=== PATIENT | female | born 1965 | race Caucasian/White ===

== ENCOUNTER → 2016-07-25 | Outpatient (CLI) | payer OTHER ==
[~2016-07-25] MED LIST: ALLE10TA10 PO; DICL75TA PO; HYDR25TA5 PO; IBUP-232 PO; IBUP800T23 PO; INDO50CA PO; LANS15CA PO; LEVO.125 PO; MAGICADU2 SWISH-SWAL; MECL-62 PO; NORC5TAB PO; PENI500T PO; PRIL20CA9 PO; QUET300XR PO; TRIL300T PO; ZOLO50TA PO
--- NOTE | 2016-07-25 14:10 | RADRPT ---
EXAM DATE/TIME: 07/25/2016 13:24 [facility] COMPARISON: none INDICATIONS : Pain in right wrist status post fall a few months ago. Evaluate for Kienbock's. RADIATION DOSE: 4.14 CTDIvol (mGy) MEDICAL HISTORY : Hypertension. Chronic obstructive pulmonary disease. SURGICAL HISTORY : Tubal ligation. ENCOUNTER: Initial ACUITY: 4 - 6 months PAIN SCALE: 4/10 LOCATION: Right wrist TECHNIQUE: Volumetric scanning of the wrist was performed. Using automated exposure control and adjustment of t he mA and/or kV according to patient size, radiation dose was kept as low as reasonably achievable to obtain optimal diagnostic quality images. FINDINGS: Problem specific findings: The examination demonstrates increased bony sclerosis of the lunate with fragmentation, partial colla pse and fracture through the central aspect of the lunate. There is early carpal collapse with machine stoppage frequency checker ior displacement of the capitate. The remainder of the osseous structures of the carpus are intact. T he distal radius and ulna are intact. CT source data: There is no retained foreign body identified. CONCLUSION: 1. Sclerotic bony changes within the lunate with fragmentation, central fracture and early carpal col lapse with slight posterior displacement of the capitate. 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 Gordon Brown MD on July 25, 2016 at 13:54 Board Certified Radiologist. This report was verified electronically.
== END ==
LOC: HRAD 12:50
PROVIDERS: ATTEND Specialist
DX: M93.1 Kienbock's disease of adults (principal)
CPT/HCPCS: 73200

== ENCOUNTER 2016-08-02 10:41 | Emergency (ER) | payer OTHER ==
[~2016-08-02] VITALS: Ht 175.3 cm; Wt 90.7 kg
[~2016-08-02 10:41] MED LIST changes: -DICL75TA PO; -HYDR25TA5 PO; -IBUP-232 PO; -LANS15CA PO; -LEVO.125 PO; -MAGICADU2 SWISH-SWAL; -NORC5TAB PO; -PENI500T PO; -PRIL20CA9 PO
[2016-08-02 10:48] VITALS: BP 147/102; PULSE 100; RESP 17; TEMP 97.6; O2SAT 99
[2016-08-02] MEDS ORDERED: PRIL20CA9 PO (11:04)
[2016-08-02] MEDS ORDERED: LEVO.125 PO (11:04)
--- NOTE | 2016-08-02 11:06 | PD ---
HPI Chief Complaint: Oral / Dental Pain or Problem Time Seen by Provider: 11:05 Travel History International Travel<30 days: No Contact w/Intl Traveler<30days: No Traveled to known affect area: No History of Present Illness HPI 51-year-old female presents to the ED for evaluation of 1 week history of 10/10 lower frontal dental pain. Patient states that she has a "bad tooth" in the area that flares up occasionally. She denies fevers or chills, radiation of the pain, difficulty swallowing, airway difficulties. She does not have a dentist. She's been treating with 800 mg ibuprofen with no improvement of symptoms. PFSH Past Medical History Anemia: Yes Arthritis: Yes Bipolar Disorder: Yes COPD: Yes Diabetes: No Diminished Hearing: No GERD: Yes Genitourinary: Yes Hepatitis: Yes (B&C) Reproductive: Yes (Uterine fibroids, fibrocystic breast) Respiratory: Yes (COPD) Immunizations Current: Yes Pancreatitis: Yes Thyroid Disease: Yes Tetanus Vaccination: Unknown ?: Not LMP: [employer] Menopausal: Yes : 4 Para: 4 Tubal Ligation: Yes Past Surgical History Section: Yes (X's 4) Other Surgery: Yes (Breast aug) Social History Alcohol Use: No (3 "Clinton's Hard" every night) Tobacco Use: Yes (04/23 PPD AND E-CIG) Substance Use: Yes (HX CRACK COCAINE; DENIES USE SINCE 2009) Allergies-Medications (Allergen,Severity, Reaction): Coded Allergies: Thorazine (Verified Allergy, Unknown, Patient denies, 08/02/16) PATIENT DENIES Reported Meds & Prescriptions Reported Meds & Active Scripts Active Magic Mouthwash Adult Liq (Multi-Ingredient Mouthwash/Gargle) 120 Ml Susp 10 Ml SWISH-SWAL ACHS Each 5mL contains: Nystatin 200,000units, Diphenhydramine 4.25mg, Viscous Lidocaine 10mg, Craft syrup 0.8 mL Penicillin V Potassium 500 Mg Tab 500 Mg PO Q8H 10 Days Ibuprofen 800 Mg Tab 800 Mg PO Q8H PRN Reported Prilosec (Omeprazole) 20 Mg Cap 20 Mg PO DAILY Synthroid (Levothyroxine Sodium) 125 Mcg Tab 125 Mcg PO DAILY Meclizine (Meclizine HCl) 25 Mg Tab 25 Mg PO DIRECTED PRN Trileptal (Oxcarbazepine) 300 Mg Tab 300 Mg PO HS Seroquel XR (Quetiapine Fumarate) 300 Mg Tab 250 Mg PO DAILY Zoloft (Sertraline HCl) 50 Mg Tab 50 Mg PO DAILY Review of Systems Except as stated in HPI: all other systems reviewed are Neg Physical Exam Narrative GENERAL: Well-nourished, well-developed nontoxic appearing white female in no acute distress. SKIN: Warm and dry. HEAD: Normocephalic. Atraumatic. EYES: No scleral icterus. No injection or drainage. PERRLA. EOMI. ENT: [place] tympanic membranes bilaterally. Nasal mucosa is moist. Oropharynx without erythema, edema or exudate. Floor of mouth is soft. Uvula midline. Airway patent. DENTAL: No loose or chipped teeth. No malocclusion. There is gum recession, tenderness, erythema of the gingiva surrounding tooth #25. No fluctuance noted. NECK: Supple, trachea midline. No JVD. Tender submandibular LAD. CARDIOVASCULAR: Regular rate and rhythm without murmurs, gallops, or rubs. No carotid bruits. 2+ DP and radial pulses bilaterally. RESPIRATORY: Breath sounds clear and equal bilaterally. No accessory muscle use. GASTROINTESTINAL: Abdomen soft, non-tender, nondistended. + Bowel sounds MUSCULOSKELETAL: No cyanosis, or edema. Full, active range of motion. Strength 5/5. Neurovascularly intact. BACK: Nontender without obvious deformity. No CVA tenderness. Data Data Last Documented VS Vital Signs Date Time Temp Pulse Resp B/P Pulse Ox O2 Delivery O2 Flow Rate FiO2 08/02/16 10:48 97.6 100 17 147/102 99 MDM Medical Decision Making Medical Screen Exam Complete: Yes Emergency Medical Condition: Yes Differential Diagnosis Gingivitis versus dental abscess versus dentalgia versus dental caries versus oral ulcer versus other Narrative Course 51-year-old female presents to the ED for evaluation of 1 week history of 10/10 lower frontal dental pain. Patient states that she has a "bad tooth" in the area that flares up occasionally. She denies fevers or chills, radiation of the pain, difficulty swallowing, airway difficulties. She does not have a dentist. Vitals reviewed. Physical exam reveals a nontoxic-appearing white female in no acute distress. There is gum recession, tenderness, erythema of the gingiva surrounding tooth #25. No fluctuance noted. The floor the mouth is soft and the airway is patent. Tender submandibular LAD. We'll treat for gingivitis and dental abscess. Patient was prescribed Pen-Vee K 500 mg 3 times a day 10 days, Magic mouthwash. She was provided a list of community dental resources. She is instructed to follow-up with a dentist. She indicated understanding of the instructions and is agreeable to the care plan. The patient stable and discharged home. Diagnosis Primary Impression: Dentalgia Additional Impressions: Periodontal disease Dental abscess Referrals: Dentist Patient Instructions: Dental Abscess (ED), General Instructions Additional Instructions: Rest, hydrate. Continue with 800mg ibuprofen every 8 hours. Take all antibiotics as prescribed, even if the symptoms resolve. Magic mouthwash as needed for dental pain. Follow-up with a dentist. Return to the ED for any urgent or emergent medical condition. Med/Other Pt SpecificInfo: Prescription(s) given Scripts Clgomzlg-Fmhmgbfjxeuignx-Nokyngoxj Liq (Magic Mouthwash Adult Liq)120 Ml Susp10 Ml SWISH-SWAL ACHS #120 ML Ref 0 Each 5mL contains: Nystatin 200,000units, Diphenhydramine 4.25mg, Viscous Lidocaine 10mg, Craft syrup 0.8 mL Prov:Jeevan Mello MD 08/02/16 Penicillin V Potassium 500 Mg [id number] Mg PO Q8H 10 Days Ref 0 Prov:Jeevan Mello MD 08/02/16 Disposition: 01 DISCHARGE HOME Condition: Stable Magalie Davidson Aug 02, 2016 11:06
[2016-08-02] MEDS ORDERED: MAGICADU2 SWISH-SWAL (11:21)
[2016-08-02] MEDS ORDERED: PENI500T PO (11:21)
[2016-08-14] MEDS ORDERED: DICL75TA PO (14:16)
[2016-09-01] MEDS ORDERED: HYDR25TA5 PO (07:34)
[2016-09-01] MEDS ORDERED: LANS15CA PO (07:37)
[2016-09-01] MEDS ORDERED: NORC5TAB PO (13:01)
[2016-09-01] MEDS ORDERED: IBUP800T23 PO (13:14)
== END 2016-08-02 11:37 | disposition home or self-care (01) ==
LOC: PHED 10:41
DX: K08.89 Other specified disorders of teeth and supporting structures (principal); K05.6 Periodontal disease, unspecified; K04.7 Periapical abscess without sinus; E07.9 Disorder of thyroid, unspecified; Z72.0 Tobacco use; Z86.2 Personal history of diseases of the blood and blood-forming organs and certain disorders involving the immune mechanism; Z87.39 Personal history of other diseases of the musculoskeletal system and connective tissue; Z86.59 Personal history of other mental and behavioral disorders; Z87.09 Personal history of other diseases of the respiratory system; Z87.19 Personal history of other diseases of the digestive system
CPT/HCPCS: 99282

== ENCOUNTER → 2016-09-01 | Day surgery (SDC) | payer OTHER ==
[~2016-09-01] VITALS: Ht 175.3 cm; Wt 90.7 kg
[~2016-09-01] MED LIST changes: +ACETAMINOPHEN/HYDROcodone 325 MG/5 MG TAB ONE; -ALLE10TA10 PO; +BUPIVACAINE HCL PF 0.5% 30 ML VIAL ONE; +DEXT 5%-NACL 0.45% 1000 ML INJ 1,000 ML IV SCH; +DICL75TA PO; +FAMOTIDINE 20 MG/2 ML VIAL ONE; +HYDR25TA5 PO; +IBUP-232 PO; -INDO50CA PO; +KETAMINE HCL 500 MG/10 ML VIAL ONE; +LACTATED RINGER'S 1000 ML INJ 1,000 ML IV ONE; +LACTATED RINGER'S 1000 ML INJ 1,000 ML ONE; +LANS15CA PO; +LEVO.125 PO; +MAGICADU2 SWISH-SWAL; +MEPERIDINE HCL 25 MG/ML VIAL ONE; +MIDAZOLAM HCL 2 MG/2 ML VIAL ONE; +MORPHINE SULFATE 4 MG/ML INJ ONE; +NORC5TAB PO; +ONDANSETRON HCL 4 MG/2 ML VIAL IV PUSH ONE; +ONDANSETRON HCL 4 MG/2 ML VIAL ONE; +PENI500T PO; +POVIDONE IODINE 10% OINT 1 PACKET EXTERNAL ONE; +PRIL20CA9 PO; +PROMETHAZINE INJ 25 MG/ML VIAL ONE; +PROPOFOL 200 MG/20 ML AMP IV ONE; +SODIUM CHLORIDE 0.9% FLUSH 5 ML FLUSH IVF PRN; +SODIUM CHLORIDE 0.9% FLUSH 5 ML FLUSH IVF SCH; +ceFAZolin 2 GM PREMIX 50 ML ONE
[2016-09-01 07:49] LABS: HEMATOCRIT 39.5 % (35.0-46.0); MEAN CELL VOLUME 93.5 FL (80.0-100.0); MEAN CORPUSCULAR HEMOGLOBIN 32.3 PG (27.0-34.0); MEAN CORPUSCULAR HGB CONC 34.6 % (32.0-36.0); PLATELET COUNT 241 TH/MM3 (150-450); RED BLOOD COUNT 4.23 MIL/MM3 (4.00-5.30); RED CELL DISTRIBUTION WIDTH 12.5 % (11.6-17.2); REVIEW FLAG FINAL; WHITE BLOOD COUNT 7.1 TH/MM3 (4.0-11.0)
--- NOTE | 2016-09-01 07:51 | HP.UPD ---
H&P Update Date: September 01, 2016 Note The Pre-Admit History and Physical Examination regarding the above named patient was reviewed (including, but not limited to, vital signs, medications, allergies, co-morbid conditions), and upon re-examination it is noted that: Indicated with "X" x - the patient's condition has not significantly changed since the last examination. [] - the patient's condition has changed since the last examination. Changes: Karena Pappas MD September 01, 2016 07:51
[2016-09-01 08:01] VITALS: BP 139/89; PULSE 87; RESP 18; TEMP 98; O2SAT 97
[2016-09-01 12:53] VITALS: PULSE 100
--- NOTE | 2016-09-01 13:03 | HHI.PR ---
Immediate Post Op Note Procedure Date: September 01, 2016 Pre Op Diagnosis: (1) Kienbock's avascular necrosis of lunate, adult Post Op Diagnosis: (1) Kienbock's avascular necrosis of lunate, adult Surgeon: Karena Pappas [employer]ime Kiln Tender(s): None Procedure: Triscaphe arthrodesis with autograft. Lunate excision. Right. Anesthesia: General Drains: None Tourniquet time (min at mmHg) 128 minutes at 220 mm Hg Patient to: PACU Patient Condition: Good Implant/Devices: SEE IMPLANT LOG (if applicable) Date/Time of Procedure: SEE SURGICAL CARE RECORD Karena Pappas MD September 01, 2016 13:03
[2016-09-01 15:00] VITALS: BP 132/81; PULSE 84; RESP 16; TEMP 98; O2SAT 96
--- NOTE | 2016-09-01 18:01 | MP ---
cc: VIET VIERA M.D. DATE OF SURGERY 09/01/2016 PREOPERATIVE DIAGNOSIS Kienbock's disease of the right wrist. POSTOPERATIVE DIAGNOSIS Kienbock's disease of the right wrist. PROCEDURES 1. Lunate excision of the right wrist. 2. Triscaphe arthrodesis of the right wrist with internal fixation and autogenous bone graft. ANESTHESIA General. SURGEON Viet Viera MD INDICATIONS A 51-year-old female with Kienbock's disease. FINDINGS The bone itself was fragmented and necrosed. At the completion of the procedure the trapezium, trapezoid and scaphoid were fused with a circular plate from [facility] and this was done using bone graft to the distal radius. TOURNIQUET TIME 128 minutes. PROCEDURE The patient was seen preoperatively where the site and side were identified and marked. The patient was then taken to the operating room, placed in supine position. Her identity was checked against the arm band and the consent form. Site and side confirmed. A time-out called prior to beginning the procedure. The right upper extremity was prepped with Hibiclens and draped in usual sterile fashion. The area to be incised was outlined with a marking pen as a curvilinear dorsal incision. The arm was exsanguinated and tourniquet inflated to 220 mmHg. Bupivacaine 0.5% plain was used to make a dorsal block for the superficial branch of the radial nerve and the lateral antebrachial cutaneous nerve. A #15 blade was used make the incision down through skin down to the subcutaneous tissue. Under loupe magnification superficial vessels and nerves were identified and retracted. The extensor tendons of the third and second dorsal compartments were retracted exposing the capsule which was then opened exposing the triscaphe joint. The three bones were decorticated and the area of the intersection and the bone between the trapezium and trapezoid was removed with a curette. Once it was completed using the same excision, the capsule was opened in the area of the lunate which was then removed in piecemeal. The radial styloid was then excised and through the same incision a longitudinal incision was made between the first and second dorsal compartments. The bone was opened by creating a window using osteotomes and bone was curetted out using a #2 curette. The window was placed back into place on the distal radius and the bone graft was packed into place after reducing the three bones and pulling them in place with K-wire. Prior to placing the bone graft and after placing the pin, the reamer was used for the 14-mm plate. The bone graft from the reamer was used as well as the other bone graft and this was placed in the intersection of the three bones after the pin was in place. Adequate reduction was noted by the mini C-arm. Once the bone graft was packed into place, the plate was placed and held in place with two K-wires and the screws were placed by standard technique drilling the hole, measuring the depth and placing the screws. Placement was adjusted using the mini C-arm. Once the plate was in place, the pins were removed. Three screws were used. The capsule was then repaired and the wound closed with 3-0 Vicryl and 4-0 Prolene in a subcuticular fashion. Once the wound was closed, pressure was applied and the tourniquet was released after 128 minutes of tourniquet time. Once there was no evidence of any oozing, a dressing was applied using povidone-iodine ointment, Adaptic, Telfa, fluffy gauze and a thumb spica splint. The patient was then taken from the operating room to recovery room in satisfactory condition having tolerated the procedure well. Postoperative instructions include keeping the arm elevated, keeping it clean and dry and returning for followup. MD NÉSTOR Batres/JONY /1:18 PM /5:46 PM ANSON
--- NOTE | 2016-09-02 14:00 | EKG ---
Date Performed: 09/01/2016 Time Performed: 08:22:52 PTAGE: 51 years EKG: Sinus rhythm . Possible inferior infarct - age undetermined Ant/septal and lateral ST-T changes are nonspecific Ab normal ECG PREVIOUS TRACING : 07/11/2014 14.27 Compared to prior tracing no significant change DOCTOR: Tacos Perkins Interpretating Date/Time 09/02/2016 13:59:33
== END | disposition home or self-care (01) ==
LOC: PHSDC 07:00
PROVIDERS: ATTEND Specialist
DX: M93.1 Kienbock's disease of adults (principal); I10 Essential (primary) hypertension; F31.9 Bipolar disorder, unspecified; F17.210 Nicotine dependence, cigarettes, uncomplicated
CPT/HCPCS: 25825; 36415; 76000; 85027; 93005; C1713; J0690; J2175; J2250; J2270; J2405; J2550; J3010; J7120

== ENCOUNTER 2016-09-12 17:17 | Emergency (ER) | payer OTHER ==
[~2016-09-12] VITALS: Ht 175.3 cm; Wt 93.5 kg
[~2016-09-12 17:17] MED LIST changes: -ACETAMINOPHEN/HYDROcodone 325 MG/5 MG TAB ONE; -BUPIVACAINE HCL PF 0.5% 30 ML VIAL ONE; -DEXT 5%-NACL 0.45% 1000 ML INJ 1,000 ML IV SCH; -FAMOTIDINE 20 MG/2 ML VIAL ONE; -IBUP-232 PO; -KETAMINE HCL 500 MG/10 ML VIAL ONE; -LACTATED RINGER'S 1000 ML INJ 1,000 ML IV ONE; -LACTATED RINGER'S 1000 ML INJ 1,000 ML ONE; -MAGICADU2 SWISH-SWAL; -MEPERIDINE HCL 25 MG/ML VIAL ONE; -MIDAZOLAM HCL 2 MG/2 ML VIAL ONE; -MORPHINE SULFATE 4 MG/ML INJ ONE; -ONDANSETRON HCL 4 MG/2 ML VIAL IV PUSH ONE; -ONDANSETRON HCL 4 MG/2 ML VIAL ONE; -PENI500T PO; -POVIDONE IODINE 10% OINT 1 PACKET EXTERNAL ONE; -PRIL20CA9 PO; -PROMETHAZINE INJ 25 MG/ML VIAL ONE; -PROPOFOL 200 MG/20 ML AMP IV ONE; -SODIUM CHLORIDE 0.9% FLUSH 5 ML FLUSH IVF PRN; -SODIUM CHLORIDE 0.9% FLUSH 5 ML FLUSH IVF SCH; -ceFAZolin 2 GM PREMIX 50 ML ONE
[2016-09-12 17:18] VITALS: BP 134/92; PULSE 107; RESP 16; TEMP 97.9; O2SAT 97
[2016-09-12] MEDS ORDERED: IBUPROFEN 600 MG TAB PO ONE (18:00)
[2016-09-12] MEDS ORDERED: METHOCARBAMOL 500 MG TAB PO SCH (18:00)
[2016-09-12] MEDS ORDERED: TETANUS/DIPHTHERIA TOXOID ADULT 0.5 ML VIAL IM ONE (18:00)
--- NOTE | 2016-09-12 18:01 | PD ---
HPI Chief Complaint: Musculoskeletal Complaint Time Seen by Provider: 17:50 Travel History International Travel<30 days: No Contact w/Intl Traveler<30days: No Traveled to known affect area: No History of Present Illness HPI 51-year-old female presents to the emergency room for evaluation of right knee pain, right anterior rib pain, and low back pain after trip and fall yesterday evening. Patient tripped on a curb and fell forward landing on her bilateral knees. She has a cast on her right arm from recent surgery and believes she may have jammed the cast up into her rib cage. Pain hurts with laughing, deep inspiration, and increased intrathoracic pressure. She sustained an abrasion to bilateral knees. States pain is worse in the right knee than the left. Pain in the knee is worsened with ambulation and range of motion. Localized to the lateral aspect with radiation into the back of the leg. She has been ambulatory since onset of symptoms. Denies paresthesias. Patient took hydrocodone last night and states it didn't touch her pain. She has not taken anything today. She denies hitting her head or loss of consciousness. History of bipolar disorder, hypothyroidism, and hypertension. Unknown last tetanus. PFSH Past Medical History Anemia: Yes Arthritis: Yes Bipolar Disorder: Yes Cancer: No Cardiovascular Problems: No COPD: Yes Diabetes: No Diminished Hearing: No Endocrine: No GERD: Yes Genitourinary: Yes Hepatitis: Yes (B&C) Hiatal Hernia: No Hypertension: Yes Immune Disorder: No Musculoskeletal: No Neurologic: No Psychiatric: Yes (BIPOLAR DISORDER) Reproductive: Yes (Uterine fibroids, fibrocystic breast) Respiratory: Yes (COPD) Immunizations Current: Yes Pancreatitis: Yes Thyroid Disease: Yes ?: Not Menopausal: Yes : 4 Para: 4 Tubal Ligation: Yes Past Surgical History Abdominal Surgery: No AICD: No Cardiac Surgery: No Section: Yes (X's 4) Ear Surgery: No Endocrine Surgery: No Eye Surgery: No Genitourinary Surgery: No Gynecologic Surgery: Yes ( X 4) Joint Replacement: No Oral Surgery: No Pacemaker: No Thoracic Surgery: Yes (BREAST AUGMENTATION) Other Surgery: Yes (RIGHT FOOT DEBRIDEMENT) Social History Alcohol Use: No (3 "Clinton's Hard" every night) Tobacco Use: Yes (1/4 PPD AND E-CIG) Substance Use: Yes (HX CRACK COCAINE; MARIJUANA NIGHTLY) Allergies-Medications (Allergen,Severity, Reaction): Coded Allergies: Thorazine (Verified Allergy, Unknown, Patient denies, 09/12/16) PATIENT DENIES Reported Meds & Prescriptions Reported Meds & Active Scripts Active Reported Hydrochlorothiazide 25 Mg Tab 25 Mg PO DAILY Synthroid (Levothyroxine Sodium) 125 Mcg Tab 125 Mcg PO DAILY Meclizine (Meclizine HCl) 25 Mg Tab 12.5 Mg PO DIRECTED PRN Trileptal (Oxcarbazepine) 300 Mg Tab 300 Mg PO HS Seroquel XR (Quetiapine Fumarate) 300 Mg Tab 200 Mg PO DAILY Zoloft (Sertraline HCl) 50 Mg Tab 50 Mg PO DAILY Review of Systems Except as stated in HPI: all other systems reviewed are Neg Physical Exam Narrative GENERAL: Well-nourished, well-developed female in no acute distress. Afebrile. Ambulatory with a limp. SKIN: Focused skin assessment warm/dry. Superficial abrasions on bilateral knees. HEAD: Normocephalic. EYES: No scleral icterus. No injection or drainage. NECK: Supple, trachea midline. No JVD or lymphadenopathy. CARDIOVASCULAR: Regular rate and rhythm without murmurs, gallops, or rubs. RESPIRATORY: Breath sounds equal bilaterally. No accessory muscle use. CHEST: Moderate tenderness to palpation of right lateral rib #6 or 7. No deformity or crepitance. No retractions or use of accessory muscles. EXTREMITY: Tenderness to palpation of bilateral patellas. Full range of motion in all joints bilaterally. No edema. 2+ dorsalis pedis pulses bilaterally. Data Data Last Documented VS Vital Signs Date Time Temp Pulse Resp B/P Pulse Ox O2 Delivery O2 Flow Rate FiO2 09/12/16 17:18 97.9 107 16 134/92 97 Orders Chest, Single Ap (09/12/16 ) Knee, Complete (4vws) (09/12/16 ) Tetanus/Diphtheria Tox Adult (Tetanus/Di (09/12/16 18:00) Methocarbamol (Robaxin) (09/12/16 18:00) Ibuprofen (Motrin) (09/12/16 18:00) MDM Medical Decision Making Medical Screen Exam Complete: Yes Emergency Medical Condition: Yes Medical Record Reviewed: Yes Differential Diagnosis Abrasion versus contusion versus fracture versus pneumothorax Narrative Course 51-year-old female presents to the emergency room for evaluation of multiple complaints after trip and fall last night. Patient denies hitting her head or loss of consciousness. She tripped on a curb and fell forward landing on bilateral knees. She believes her right arm jammed into her right rib cage and has since had right anterior chest pain worse with increased intrathoracic pressure and palpation. Physical exam is unremarkable except for mild abrasions to the bilateral knees. She is ambulatory without difficulty. Patient is extremely tender to palpation of the knees which appears to be an exaggerated response. When she palpate her own knees, she does not appear distressed. X-ray of the right knee and ribs are negative. Likely contusions. Patient given Robaxin and ibuprofen the emergency room and discharged with orthopedic instructions. Told to follow up with her primary care physician or return forcing symptoms. She understands and agrees to this plan. Diagnosis Primary Impression: Right knee pain Qualified Code: M25.561 - Acute pain of right knee Additional Impression: Contusion of rib on right side Qualified Code: S20.211A - Contusion of rib on right side, initial encounter Referrals: Primary Care Physician Patient Instructions: General Instructions, Knee Pain (ED), Rib Contusion (ED) Additional Instructions: Rest and drink plenty of fluids. Keep wound clean and dry. Take ibuprofen with food as directed, as needed for pain. Continue to take deep breaths to prevent pneumonia. Apply ice to the affected area for 20 minutes at a time, as needed for pain and swelling. Follow-up with a primary care physician. Return to the emergency room for worsening symptoms. Disposition: 01 DISCHARGE HOME Condition: Stable Brittanie Sheikh September 12, 2016 18:01
--- NOTE | 2016-09-12 18:12 | RADHPO ---
EXAM DATE/TIME: 09/12/2016 17:57 [facility] COMPARISON: CHEST SINGLE AP, July 11, 2014, 14:17. INDICATIONS : Right chest pain post fall. MEDICAL HISTORY : Hypertension. Chronic obstructive pulmonary disease. SURGICAL HISTORY : Tubal ligation. ENCOUNTER: Initial ACUITY: 1 day PAIN SCORE: 8/10 LOCATION: Right chest FINDINGS: A single view of the chest demonstrates the lungs to be symmetrically aerated without evidence of mas s, infiltrate or effusion. The cardiomediastinal contours are unremarkable. Osseous structures are intact. Old left-sided rib fractures. CONCLUSION: No acute disease. Braden Weir Jr., MD on September 12, 2016 at 18:09 Board Certified Radiologist. This report was verified electronically.
--- NOTE | 2016-09-12 18:13 | RADHPO ---
EXAM DATE/TIME: 09/12/2016 17:57 [facility] COMPARISON: No previous studies available for comparison. INDICATIONS : Entire right knee pain post fall. MEDICAL HISTORY : Hypertension. Chronic obstructive pulmonary disease. SURGICAL HISTORY : Tubal ligation. ENCOUNTER: Initial ACUITY: 1 day PAIN SCORE: 9/10 LOCATION: Right knee FINDINGS: Multiple views of the knee show joint space narrowing with periarticular sclerotic change but no oste ophyte production. No fracture or dislocation. No joint effusion. Soft tissues are unremarkable. CONCLUSION: No acute disease. Braden Weir Jr., MD on September 12, 2016 at 18:10 Board Certified Radiologist. This report was verified electronically.
[2016-09-12] MEDS ORDERED: IBUP-232 PO (18:39)
== END 2016-09-12 18:57 | disposition home or self-care (01) ==
LOC: PHEFT 17:17
DX: M25.561 Pain in right knee (principal); S20.211A Contusion of right front wall of thorax, initial encounter; D64.9 Anemia, unspecified; E03.9 Hypothyroidism, unspecified; J44.9 Chronic obstructive pulmonary disease, unspecified; I10 Essential (primary) hypertension; K85.90 Acute pancreatitis without necrosis or infection, unspecified; W10.1XXA Fall (on)(from) sidewalk curb, initial encounter; Z23 Encounter for immunization
CPT/HCPCS: 71010; 73564; 90471; 90714

== ENCOUNTER → 2016-12-09 | Outpatient (CLI) | payer OTHER ==
[~2016-12-09] MED LIST changes: -DICL75TA PO; +IBUP-232 PO; -IBUP800T23 PO; -LANS15CA PO; -NORC5TAB PO
--- NOTE | 2016-12-09 17:32 | RADRPT ---
EXAM DATE/TIME: 12/09/2016 15:57 [facility] COMPARISON: No previous studies available for comparison. INDICATIONS : Pain. Fall 1 year ago. MEDICAL HISTORY : Hypertension. SURGICAL HISTORY : section. Breast implants. Wrist surgery. ENCOUNTER: [facility] ACUITY: 1 year PAIN SCORE: 5/10 LOCATION: back. TECHNIQUE: Multiplanar multisequence MRI of the lumbar spine was performed without contrast. FINDINGS: The most caudal appearing lumbar vertebra is numbered as L5. VERTEBRAE: Homogeneous signal. Normal alignment. CONUS: Normal level and configuration. T12-L1: The thecal sac has a normal diameter. No evidence of disc bulge or protrusion. The neural foramina are patent bilaterally. L1-L2: The thecal sac has a normal diameter. No evidence of disc bulge or protrusion. The neural foramina are patent bilaterally. L2-L3: Mild disc desiccation with preservation of the height. The thecal sac has a normal diameter. No evid ence of disc bulge or protrusion. The neural foramina are patent bilaterally. L3-L4: There is disc desiccation without significant height loss. A mild broad-based disc bulge. Moderate li gamentum flavum hypertrophy and bony hypertrophy of the facets. Central canal and lateral recesses ar e patent. There is some narrowing of the inferior portion of the neural foramina bilaterally but no i mpingement observed. L4-L5: Mild disc desiccation with preservation of the height. A mild broad-based disc bulge. Moderate ligame ntum flavum hypertrophy and bony hypertrophy of the facets. Central canal is patent. Neural foramina are patent. L5-S1: Disc desiccation with mild loss of height and mild broad-based bulge. Central canal and lateral reces ses are patent. Facet joints are unremarkable. Neural foramina are patent bilaterally. CONCLUSION: 1. No acute abnormality. 2. Diffuse mild degenerative changes without neural impingement or central canal stenosis. Braden Weir Jr., MD on December 09, 2016 at 17:24 Board Certified Radiologist. This report was verified electronically.
--- NOTE | 2016-12-09 21:50 | RADRPT ---
EXAM DATE/TIME: 12/09/2016 15:21 [facility] COMPARISON: CT SOFT TISSUE NECK W/O CONTRAST, November 20, 2015, 15:13. INDICATIONS : Left neck pain. MEDICAL HISTORY : Hypertension. Chronic obstructive pulmonary disease. Gastroesophageal reflux disease. Thyroid disease . Pancreatitis. Uterine fibroids. Arthritis. Substance abuse. SURGICAL HISTORY : section. Breast augmentation. Right foot debridement. ENCOUNTER: Initial ACUITY: 4-6 days PAIN SCORE: 6/10 LOCATION: Left neck AREA EVALUATED: Left neck. FINDINGS: MASSES: None. FLUID COLLECTIONS: None. OTHER: No abnormal lymph nodes are identified. A normal-size lymph node is identified measuring 11 x 18 x 6 mm. It demonstrates normal fatty hilum. CONCLUSION: No abnormality is identified to explain the left neck pain. If symptoms persist consider CT. Luciano Corona MD on December 09, 2016 at 21:47 Board Certified Radiologist. This report was verified electronically.
--- NOTE | 2016-12-09 22:56 | RADRPT ---
EXAM DATE/TIME: 12/09/2016 15:57 [facility] COMPARISON: No previous studies available for comparison. INDICATIONS : Right knee pain after fall 1 year ago. MEDICAL HISTORY : Hypertension. SURGICAL HISTORY : section. Breast implants. Wrist surgery. ENCOUNTER: [facility] ACUITY: 1 year PAIN SCORE: 5/10 LOCATION: Right knee. TECHNIQUE: Multiplanar, multisequence MRI examination was performed without contrast. FINDINGS: The cruciate and collateral ligaments are intact. No displaced meniscal tear. Trace joint fluid prese nt. The patella is subluxed slightly laterally. 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 There is irregularity at the medial tibial plateau on the articular lucero rface which could be related to a remote fracture. There is a small amount of edema in the soft tissu es posteriorly around the proximal tibia. CONCLUSION: Probable remote medial tibial plateau fracture with signal changes in the proximal tibia most charact eristic of marrow infarction. There is a small amount of surrounding edema in the soft tissues. Cruciate and collateral ligaments intact. Trace joint fluid. Keyshawn Garcia MD on December 09, 2016 at 22:50 Board Certified Radiologist. This report was verified electronically.
== END ==
LOC: HRAD 14:57
PROVIDERS: ATTEND Family Medicine
DX: R22.1 Localized swelling, mass and lump, neck (principal); M25.561 Pain in right knee; M51.36 Other intervertebral disc degeneration, lumbar region
CPT/HCPCS: 72148; 73721; 76536

== ENCOUNTER → 2017-04-10 | Outpatient (CLI) | payer OTHER ==
--- NOTE | 2017-04-10 10:29 | RADRPT ---
EXAM DATE/TIME: 04/10/2017 09:40 [facility] COMPARISON: CT ABDOMEN & PELVIS W CONTRAST, November 20, 2015, 13:46. INDICATIONS : Abdominal pain. MEDICAL HISTORY : Chronic obstructive pulmonary disease. Pancreatitis. Gastroesophageal reflux disease. Uterine fibriod s. History of substance use. Hepatitis B and C. Arthritis. Hypertension. SURGICAL HISTORY : section. Tubal ligation. Breast augmentation. Right foot debridement. ENCOUNTER: Initial ACUITY: 1 day PAIN SCORE: 0/10 LOCATION: Abdomen. MEASUREMENTS: LIVER: 14.8 cm length COMMON DUCT: 4 mm RIGHT KIDNEY: 11.6 x 5.2 x 5.4 cm LEFT KIDNEY: 12.1 x 5.3 x 5.4 cm SPLEEN: 10.2 cm length AORTA: 2.2cm maximal FINDINGS: LIVER: Minimally increased hepatic echogenicity without volume loss or intrahepatic ductal dilatation. No si gnificant focal mass. COMMON DUCT: No intraluminal mass or stone visualized. GALLBLADDER: Contains no stones, demonstrates no wall thickening or pericholecystic fluid. PANCREAS: The visualized portions are within normal limits. RIGHT KIDNEY: No hydronephrosis, stone or mass. LEFT KIDNEY: No hydronephrosis, stone or mass. SPLEEN: No focal lesion. AORTA: Non aneurysmal. IVC: Within normal limits. CONCLUSION: 1. Minimally increased hepatic echogenicity without volume loss consistent with hepatic steatosis or medical liver disease. 2. Otherwise, unremarkable abdominal ultrasound examination. Mukesh Bobby MD on April 10, 2017 at 10:24 Board Certified Radiologist. This report was verified electronically.
--- NOTE | 2017-04-10 11:28 | RADRPT ---
EXAM DATE/TIME: 04/10/2017 09:38 [facility] COMPARISON: No previous studies available for comparison. INDICATIONS : Pelvic pain. MEDICAL HISTORY : Gastroesophageal reflux disease. Pancreatitis. Chronic obstructive pulmonary disease. Uterine fibriod s. History of substance use. Hepatitis B and C. Arthritis. Hypertension. SURGICAL HISTORY : Tubal ligation. section. Breast augmentation. Right foot debridement. ENCOUNTER: Initial ACUITY: 1 day PAIN SCORE: 0/10 LOCATION: Bilateral pelvis MEASUREMENTS: UTERUS: 8.8 x 4.1 x 5.1 cm ENDOMETRIAL STRIPE: 5 mm RIGHT OVARY: 3.4 x 2.5 x 2.2 cm LEFT OVARY: Non visualized FINDINGS: Limited examination due to transabdominal imaging only and partially distended bladder. UTERUS: There are multiple echogenic myometrial masses near the fundus of the uterus. The largest measur es 2.0 x 1.6 x 1.6 cm. RIGHT OVARY: Ovary contains no mass or significant cystic lesion. LEFT OVARY: Not visualized. MISCELLANEOUS: No free fluid. CONCLUSION: 1. Limited examination due to transabdominal imaging only and partially distended bladder. 2. The left ovary is not visualized. 3. Small myometrial masses near the fundus of the uterus with the largest measuring 2.0 x 1.6 x 1.6 c m consistent with uterine leiomyomas. Patient reportedly has a history of uterine leiomyomas. Mukesh Bobby MD on April 10, 2017 at 11:20 Board Certified Radiologist. This report was verified electronically.
== END ==
LOC: HRAD 08:57
PROVIDERS: ATTEND Family Medicine
DX: R10.30 Lower abdominal pain, unspecified (principal); R10.2 Pelvic and perineal pain
CPT/HCPCS: 76700; 76856

== ENCOUNTER 2017-06-02 06:38 | Day surgery (SDC) | payer OTHER ==
[2017-06-02] VITALS (7 sets, daily range): BP systolic 97–133; BP diastolic 55–77; PULSE 82–103; RESP 17–20; TEMP 97.5–97.9; O2SAT 94–98
[~2017-06-02] VITALS: Ht 175.3 cm; Wt 88.2 kg
[2017-06-02] MEDS ORDERED: GABA400C5 PO (06:57)
[2017-06-02] MEDS ORDERED: SYMB160A INH (06:57)
[2017-06-02] MEDS ORDERED: MORP-43 PO (06:58)
[2017-06-02] MEDS ORDERED: OMEP20TA93 PO (06:59)
[2017-06-02] MEDS ORDERED: SODIUM CHLOR 0.9% 1000 ML INJ 1,000 ML IV SCH (07:15)
[2017-06-02] MEDS ORDERED: LIDOCAINE HCL 1% 20 ML VIAL ONE ×2 (07:46→08:29)
[2017-06-02] MEDS ORDERED: MIDAZOLAM HCL 2 MG/2 ML VIAL ONE ×3 (07:53→08:30)
--- NOTE | 2017-06-02 08:41 | PD.RAD ---
Post CT Procedure Prog Note Pre Procedure Diagnosis: (1) Liver enzyme elevation Post Procedure Diagnosis: (1) Liver enzyme elevation Procedure Date: Jun 02, 2017 Supervising Radiologist: Mukesh Bobby Anesthesia: Conscious Sedation Plan of Activity Patient to Unit: [facility] Patient Condition: Good See PACS Report for procedural detail/treatment Mukesh Bobby MD Jun 02, 2017 08:41
[2017-06-02] MEDS ORDERED: HYDROmorphone HCL 2 MG TAB PO PRN (08:45)
[2017-06-02] MEDS ORDERED: PILL SPLITTER OTHER PRN (09:00)
--- NOTE | 2017-06-02 11:22 | RADRPT ---
EXAM DATE/TIME: 06/02/2017 08:04 [facility] COMPARISON: No previous studies available for comparison. INDICATIONS : Cirrhosis, Hep C SEDATION TIME: 40 minutes BIOPSY SITE: liver MEDICATION(S): 1.) 5 mg midazolam (Versed) IV 2.) 250 mcg fentanyl (Sublimaze) IV DEVICE(S): 1.) 17 gauge introducer 2.) 18 gauge Temno core biopsy needle MEDICAL HISTORY : Hepatitis A. Hepatitis B. Hepatitis C. SURGICAL HISTORY : None. ENCOUNTER: Initial ACUITY: 1 day PAIN SCORE: 0/10 LOCATION: Right upper quadrant A total of four core specimen(s) were obtained and sent to the laboratory for pathologic evaluation. PROCEDURE: 1. CT guided liver biopsy. Prior to the procedure informed consent was obtained. Any appropriate prior imaging studies were rev iewed. Using automated exposure control and adjustment of the mA and/or kV according to patient size, radiat ion dose was kept as low as reasonably achievable to obtain optimal diagnostic quality images. DICOM format image data is available electronically for review and comparison. The site was prepped in a sterile fashion. Full sterile technique was used, including cap, mask, keyana rile gloves and gown and a large sterile sheet. Hand hygiene and 2% chlorhexidine and/or betadine/al cohol prep was utilized per protocol for cutaneous antisepsis. The skin and subcutaneous tissues wer e infiltrated with local anesthetic solution. With CT guidance the previously identified target was localized. Biopsy was performed using the presc ribed needle as above. Adequate hemostasis was obtained with compression at the puncture site. Follow-up CT scan reveals no hemorrhage. The patient tolerated the procedure well and there were no complications. The patient was returned to the Radiology Outpatient Unit in stable condition. CONCLUSION: Uncomplicated CT guided biopsy. Mukesh Bobby MD on June 02, 2017 at 11:18 Board Certified Radiologist. This report was verified electronically.
== END 2017-06-02 12:30 | disposition home or self-care (01) ==
LOC: HRAD 06:38 → HRIP 06:38 → HRAD 12:30
PROVIDERS: ATTEND Specialist
DX: B19.20 Unspecified viral hepatitis C without hepatic coma (principal); K74.60 Unspecified cirrhosis of liver; K75.81 Nonalcoholic steatohepatitis (NASH); R74.8 Abnormal levels of other serum enzymes
CPT/HCPCS: 47000; 77012; 88307; 88313; J2250; J3010; J7030